=== PATIENT | male | born 1985 | race African-American/Black ===

== ENCOUNTER 2017-11-05 18:55 | Emergency (ER) | payer OTHER, SELFPAY ==
--- NOTE | 2017-11-05 21:07 | RAD ---
TWO VIEWS LEFT RIBS 11/05/17 HISTORY: Left sided rib pain. FINDINGS: The left lung is clear without pneumothorax or pleural effusion. No left sided rib fracture is visual ized. No other findings. IMPRESSION: No left sided rib fracture visualized. POS: [facility]
[2017-11-05] MEDS ORDERED: Cyclobenzaprine 10 MG TAB ONE (21:11)
[2017-11-05] MEDS ORDERED: Ketorolac Tromethamine 30 MG/ML VIAL ONE (21:11)
== END 2017-11-05 22:40 | disposition home or self-care (01) ==
LOC: ERS 18:55
DX: S29.012A Strain of muscle and tendon of back wall of thorax, initial encounter (principal); F31.9 Bipolar disorder, unspecified; I10 Essential (primary) hypertension; Z79.899 Other long term (current) drug therapy; X58.XXXA Exposure to other specified factors, initial encounter
CPT/HCPCS: 96372; J1885